=== PATIENT | male | born 2000 | race Caucasian/White ===

== ENCOUNTER 2025-03-24 14:06 | Emergency (ER) | payer SELFPAY ==
[2025-03-24] MEDS: Lidocaine 1% with EPINEPHrine 1:100,000 20 ML MDV INJECT ONE (15:17)
[2025-03-24] MEDS: Diphtheria,Pertussis(Acell),Tetanus Vaccine 0.5 ML Syringe IM ONE (15:41)
[2025-03-24] MEDS: Bacitracin/Neomycin/Polymyxin B Oint 0.9 GM U/D Packet TOP ONE (15:53)
== END 2025-03-24 16:12 | disposition home or self-care (01) ==
LOC: KA.ED 14:06
DX: S61.042A Puncture wound with foreign body of left thumb without damage to nail, initial encounter (principal); Z79.899 Other long term (current) drug therapy; Z23 Encounter for immunization; W45.0XXA Nail entering through skin, initial encounter; Y93.89 Activity, other specified; Y99.0 Civilian activity done for income or pay
CPT/HCPCS: 73140-FA; 90471; 90715; 99283-25; J2004